=== PATIENT | male | born 1970 | race Two or more races ===

== ENCOUNTER → 2017-10-12 | Outpatient (CLI) | END | disposition home or self-care (01) ==

== ENCOUNTER 2017-12-15 13:17 | Emergency (ER) | END 2017-12-15 17:59 | disposition home or self-care (01) ==

== ENCOUNTER → 2019-03-01 | Outpatient (CLI) | payer BC ==
[~2019-03-01] MED LIST: ASPI-817 PO; IBUP800T48 PO
== END | disposition home or self-care (01) ==
LOC: LAB 08:22
PROVIDERS: ATTEND Internal Medicine
DX: E55.9 Vitamin D deficiency, unspecified (principal); R73.03 Prediabetes; E03.9 Hypothyroidism, unspecified; E29.1 Testicular hypofunction
CPT/HCPCS: 71046; 80061; 81003; 82306; 83036; 84153; 84154; 84403; 84436; 84443; 85025